=== PATIENT | male | born 1955 | race Two or more races ===

== ENCOUNTER 2016-12-19 19:45 | Emergency (ER) | payer MEDICAID ==
[~2016-12-19] VITALS: Ht 172.7 cm; Wt 63.5 kg
[2016-12-19] MEDS ORDERED: DILTIAZEM HCL30 MG PO (19:50)
[2016-12-19] MEDS ORDERED: ASPIRIN81 MG ORAL (19:50)
[2016-12-19] MEDS ORDERED: FERROUS SULFAT325 MG ORAL (19:51)
[2016-12-19] MEDS ORDERED: METOPROLOL SUCC25 MG ORAL (19:52)
[2016-12-19 19:56] VITALS: BP 166/112
[2016-12-19] MEDS ORDERED: ZYPREXA5 MG ORAL (20:01)
[2016-12-19] MEDS ORDERED: QUETIAPINE FUMA50 MG ORAL (20:02)
[2016-12-19] MEDS ORDERED: TRIHEXYPHENIDYL2 MG ORAL (20:02)
[2016-12-19] MEDS ORDERED: DOCUSATE SODIU100 MG ORAL (20:03)
[2016-12-19] MEDS ORDERED: TRAMADOL HCL50 MG ORAL (20:04)
[2016-12-19] MEDS ORDERED: MILK OF MA400 MG/51 ORAL (20:04)
[2016-12-19] MEDS ORDERED: CHLORPROMAZINE50 MG PO (20:05)
[2016-12-19] MEDS ORDERED: ADVAIR 250-501 EACH INH (20:07)
[2016-12-19] MEDS ORDERED: LORazepam Inj 2mg/ml 1ml IM ONE (20:15)
[2016-12-19] MEDS ORDERED: DiphenhydrAMINE 50mg/ml Inj IM ONE (20:15)
[2016-12-19 20:46] LABS: MEAN CORPUSCULAR HEMOGLOBIN 29.7 PG (27.0-31.0); MEAN CORPUSCULAR HGB CONC 33.7 G/DL (32.0-36.0); MEAN CORPUSCULAR VOLUME 88 FL (80-99); MEAN PLATELET VOLUME 5.4 FL (6.5-10.1); PLATELET COUNT 206 K/UL (150-450); RED BLOOD COUNT 4.57 M/UL (4.70-6.10); RED CELL DISTRIBUTION WIDTH 12.1 % (11.6-14.8); WHITE BLOOD COUNT 11.2 K/UL (4.8-10.8)
--- NOTE | 2016-12-19 20:47 | Emergency Room Report ---
History of Present Illness General Chief Complaint: Substance Abuse Source: Medical Record, EMS (FLORENCE MAST M.D.) Present Illness HPI 61-year-old male brought to ED for evaluation. Per EMS patient signed out from his assisted-living facility a few days ago. Patient allegedly used meth and other drugs and then returned to the facility. Patient was agitated and belligerent and combative. Facility call 911. Upon arrival patient is unwilling to provide any additional history at this time. Patient has extensive psychiatric history. No reported signs of trauma. No reported fevers or chills. No reported chest pain shortness of breath. No other aggravating relieving factors. No other associated symptoms (FLORENCE MAST M.D.) Allergies: Coded Allergies: No Known Allergies (Unverified , 12/19/16) Patient History Past Medical History: DM, psych hx Past Surgical History: none Pertinent Family History: none Social History: Reports: drug use, Denies: alcohol use, smoking Immunizations: UTD Reviewed Nursing Documentation: PMH: Agreed, PSxH: Agreed (FLORENCE MAST M.D.) Nursing Documentation-PMH Past Medical History: No History, Except For Hx Diabetes: Yes (FLORENCE MAST M.D.) Review of Systems All Other Systems: limited (FLORENCE MAST M.D.) Physical Exam Vital Signs Date Time Temp Pulse Resp B/P Pulse Ox O2 Delivery O2 Flow Rate FiO2 12/19/16 19:37 98.8 117 26 166/112 94 Room Air Sp02 EP Interpretation: reviewed, normal General Appearance: thin Head: normocephalic Eyes: bilateral eye PERRL, bilateral eye normal inspection ENT: normal ENT inspection, normal voice Neck: full range of motion, supple/symm/no masses Respiratory: chest non-tender, lungs clear, normal breath sounds, speaking full sentences Cardiovascular #1: tachycardia Gastrointestinal: normal inspection Rectal: deferred Genitourinary: no CVA tenderness Musculoskeletal: normal inspection Neurologic: other - psych Psychiatric: other - psych Skin: normal inspection Lymphatic: normal inspection (FLORENCE MAST M.D.) Medical Decision Making Diagnostic Impression: Primary Impression: Substance abuse Additional Impression: Altered mental status Qualified Codes: R41.82 - Altered mental status, unspecified ER Course Received signout from Dr Mast to evaluate this patient with AMS, suspected polysubstance abuse Labs: Mild leuks 11k, likely reactionary from stress/behavioral change, aggressiveness Utox: positive for meth, MJ Mildly elevated total bili, but abd soft, NT/ND Patient remains calm in the ED [employer] insurance requested transfer to [facility] Endorsed to Dr Hale for transfer at 1110pm to med/surg bed (EMELY STEINBERG M.D.) EKG Diagnostic Results Rate: tachycardiac Rhythm: NSR ST Segments: no acute changes ASA given to the pt in ED: No (FLORENCE MAST M.D.) Rhythm Strip Diag. Results EP Interpretation: yes Rhythm: NSR, no PVC's, no ectopy (FLORENCE MAST M.D.) Last Vital Signs Date Time Temp Pulse Resp B/P Pulse Ox O2 Delivery O2 Flow Rate FiO2 12/19/16 19:56 98.5 130 22 166/112 97 Room Air (FLORENCE MAST M.D.) Status: improved (EMELY STEINBERG M.D.) Disposition: ADMITTED INPATIENT FLORENCE MAST M.D. Dec 19, 2016 20:47 EMELY STEINBERG M.D. Dec 19, 2016 22:46
[2016-12-19 21:00] LABS: TROPONIN I < 0.30 ng/mL (<=0.30)
[2016-12-19 21:01] LABS: ACETAMINOPHEN < 10 ug/mL (10-30); ALANINE AMINOTRANSFERASE 22 U/L (3-41); ALBUMIN/GLOBULIN RATIO 1.5 (1.0-2.7); ALCOHOL < 10 mg/dL; ANION GAP 21 (5-15); ASPARTATE AMINO TRANSFERASE 32 U/L (5-40); CALCIUM 9.7 mg/dL (8.6-10.2); CARBON DIOXIDE 24 mEQ/L (20-30); CHLORIDE 98 mEQ/L (98-107); CREATININE 1.2 mg/dL (0.7-1.2); GLOMERULAR FILTRATION RATE > 60 mL/min (>60); HEMOLYSIS 8; POTASSIUM 3.9 mEQ/L (3.4-4.9); SODIUM 143 mEQ/L (135-145); TOTAL PROTEIN 8.1 g/dL (6.6-8.7)
[2016-12-19 21:11] LABS: CKMB 8.7 ng/mL (< 6.7)
[2016-12-19 21:25] LABS: BAND NEUTROPHILS % (MANUAL) 0 % (0-8); BASOPHILS % (MANUAL) 0 % (0-2); EOSINOPHILS % (MANUAL) 0 % (0-3); LYMPHOCYTES % (MANUAL) 9 % (20-45); NEUTROPHILS % (MANUAL) 85 % (45-75); PLATELET ESTIMATE ADEQUATE; PLATELET MORPHOLOGY NORMAL; TOTAL CELLS COUNTED 100
[2016-12-19 21:31] LABS: BILIRUBIN,DIRECT 0.2 mg/dL (0.1-0.3)
[2016-12-19 22:42] VITALS: BP 110/80
[2016-12-19] MEDS ORDERED: LORazepam Inj 2mg/ml 1ml IV ONE (23:45)
[2016-12-19 23:51] VITALS: BP 117/75
[2016-12-20] MEDS ORDERED: LORazepam Inj 2mg/ml 1ml IV ONE (00:15)
[2016-12-20 01:03] VITALS: BP 108/75
[2016-12-20 01:13] VITALS: BP 108/75
--- NOTE | 2016-12-21 13:55 | Cardiology Report ---
APPROVED REPORT EKG Measurement Heart [id number] Sinus tachycardia with premature atrial complexes Otherwise normal ECG
== END 2016-12-20 01:25 | disposition short-term general hospital (02) ==
LOC: EDBD 19:45 → EMR 20:54
DX: F15.10 Other stimulant abuse, uncomplicated (principal); R41.82 Altered mental status, unspecified; E11.9 Type 2 diabetes mellitus without complications
CPT/HCPCS: 36415; 80053; 80300; 80329; 82248; 82550; 82553; 84484; 85007; 85025; 93005; 96372; 96374; 96375; 99284; J1200; J7040